=== PATIENT | female | born 1960 | race Two or more races ===

== ENCOUNTER 2017-03-02 16:49 | Emergency (ER) | payer OTHER ==
[~2017-03-02] VITALS: Ht 154.9 cm; Wt 67.6 kg
[2017-03-02 17:02] VITALS: BP 133/102
--- NOTE | 2017-03-02 17:05 | NUR ---
Patient to bed 07.
--- NOTE | 2017-03-02 17:10 | NUR ---
PT PRESENTS TO ER FOR EVALUATION OF HEADACHE, SPECIFICALLY LEFT SIDE, SINCE THIS AFTERNOON.HX OF HTN, ANXIETY AND DEPRESSION.DENIES N/V/D; SKIN IS PINK/WARM/DRY; AAOX4 WITH EVEN AND STEADY GAIT; LUNGS CLEAR BL; HR EVEN AND REGULAR; PT DENIES ANY FEVER, CP, SOB, OR COUGH AT THIS TIME; PATIENT STATES PAIN OF 10/10 AT THIS TIME; PATIENT POSITIONED FOR COMFORT; HOB ELEVATED; BEDRAILS UP X2; BED DOWN. ER MD MADE AWARE OF PT STATUS.
--- NOTE | 2017-03-02 17:19 | NUR ---
Dr. mosher evaluating patient at bedside.
[2017-03-02] MEDS ORDERED: KETOROLAC 60 MG/2 ML VIAL IM ONE (17:20)
--- NOTE | 2017-03-02 17:41 | NUR ---
Patient back from CT via wheelchair.
--- NOTE | 2017-03-02 18:00 | NUR ---
PT RESTING ON BED;STATES "I DON'T HAVE PAIN NOW";ONLY THE SHOT YOU GAVE ME IN THE ARM";NO ACUTE DISTRESS NOTED;WILL CONTINUE TO MONITOR PT.
--- NOTE | 2017-03-02 18:52 | NUR ---
Patient discharged with v/s stable. Written and verbal after care instructions given and explained. Patient alert, oriented and verbalized understanding of instructions. Ambulatory with steady gait. All questions addressed prior to discharge. ID band removed. Patient advised to follow up with PMD. Rx of MOTRIN AND TRAMADOL given. Patient educated on indication of medication including possible reaction and side effects. Opportunity to ask questions provided and answered.
[2017-03-02 18:53] VITALS: BP 150/81
== END 2017-03-02 18:52 | disposition home or self-care (01) ==
LOC: MED 16:49
DX: R51 Headache (principal); R03.0 Elevated blood-pressure reading, without diagnosis of hypertension
CPT/HCPCS: 70450; 96372; 99284; J1885

== ENCOUNTER 2017-11-12 12:01 | Outpatient (CLI) | payer OTHER | END 2017-11-12 20:49 | disposition home or self-care (01) | LOC: MRD 12:01 | DX: M47.896 Other spondylosis, lumbar region (principal); M53.3 Sacrococcygeal disorders, not elsewhere classified; I10 Essential (primary) hypertension | CPT/HCPCS: 72110 ==